=== PATIENT | male | born 1970 | race Caucasian/White ===

== ENCOUNTER 2021-03-07 21:18 | Emergency (ER) | payer OTHER, SELFPAY ==
[2021-03-07 21:35] VITALS: BP 149/106; PULSE 110; RESP 20; O2SAT 100
[2021-03-07 22:38] LABS: Basophils Percent Auto 0.4 % (0.2-1.2); Eosinophils Absolute Auto 0.1 K/mm3 (0-0.3); Eosinophils Percent Auto 0.7 % (0-4.4); Hemoglobin 16.3 g/dL (14.0-18.0); Immature Granulocyte Absolute 0.02 K/mm3 (0.00-0.031); Immature Granulocyte Percent A 0.2 % (0-0.5); Lymphocytes Absolute Auto 0.83 K/mm3 (0.9-3.2); Lymphocytes Percent Auto 9.8 % (18.3-44.2); Mean Corpuscular HGB Conc 34.7 g/dl (32-36); Mean Corpuscular Hemoglobin 31.7 pg (26-34); Mean Corpuscular Volume 91.4 fl (80-100); Mean Platelet Volume 9.8 fl (7.4-10.4); Monocytes Absolute Auto 0.7 K/mm3 (0.1-0.6); Monocytes Percent Auto 8.3 % (2.6-8.5); Neutrophils Absolute Auto 6.8 K/mm3 (1.3-6.7); Neutrophils Percent Auto 80.6 % (45.5-73.1); Platelet Count Result 292 k/mm3 (150-375); Red Blood Count 5.14 M/mm3 (4.6-6.20); Red Cell Distribution Width 12.5 % (11.5-14.5); White Blood Count 8.5 K/mm3 (4.5-10.0)
[2021-03-07 22:49] LABS: Alanine Aminotransferase 55 U/L (4-50); Albumin Level 4.8 g/dL (3.5-5.1); Alkaline Phosphatase 55 U/L (38-126); Anion Gap 9 mmol/L (8-16); Aspartate Amino Transferase 33 U/L (17-59); Bilirubin,Total 0.5 mg/dL (0.2-1.3); Blood Urea Nitrogen 15 mg/dL (9-20); Calcium 9.8 mg/dL (8.4-10.2); Carbon Dioxide 26 mmol/L (22-30); Chloride 101 mmol/L (98-107); Estimated CRCL calculation 65 ml/min; Estimated Glomerular Filt Rate 58; Glucose 139 mg/dL (65-110); Lipase 51 U/L (23-300); Potassium 4.3 mmol/L (3.4-5.0); Sodium 136 mmol/L (137-145)
--- NOTE | 2021-03-07 23:02 | ED.ABDPAIN ---
HPI - Abdominal Pain General Chief Complaint: Abdominal Pain Stated Complaint: Abdominal pain Time Seen by Provider: 03/07/21 23:01 Source: patient Mode of arrival: ambulatory Limitations: no limitations History of Present Illness HPI narrative: The patient is a 50 yo male with a history of BPH presenting for evaluation of dysuria, difficulty with urination. Patient was seen by PCP yesterday, and was started on oral Ciprofloxacin. Patient with continued painful urination, hesitancy this evening thus prompting his visit tonight. Patient denies fever or chills. No back pain. Patient denies testicular pain. Patient with history of this in the past. States that he has a history of BPH and urinary retention. He is compliant with his finasteride and Flomax. In the past patient did have to pass a voiding trial after Mcdaniel catheter was placed in the ER for similar presentation. Related Data Home Medications Medication Instructions Recorded Confirmed finasteride 5 mg tablet 5 mg PO tablet 03/07/21 03/07/21 tamsulosin 0.4 mg capsule ea PO 03/07/21 03/07/21 Allergies Allergy/AdvReac Type Severity Reaction Status Date / Time No Known Allergies Allergy Verified 03/07/21 15:44 Review of Systems Review of Systems: CONSTITUTIONAL: Denies fever, chills, or sweats. EYES: Denies visual changes, redness, or discharge. ENT: Denies rhinorrhea, congestion, sore throat, or otalgia. CARDIOVASCULAR: Denies chest pain, palpitations, or edema. RESPIRATORY: Denies cough or dyspnea. GASTROINTESTINAL: Reports distension, no significant pain GENITOURINARY: Reports dysuria, hematuria SKIN: Denies rash or itching. MUSCULOSKELETAL: Denies back pain NEUROLOGIC: Denies headache [facility] Social History Social History Smoking status: Current every day smoker (chew tobacco.) Tobacco type: smokeless tobacco Smokeless tobacco user: chewing tobacco Exam Narrative: GENERAL: Awake, alert, conversant HEAD: Normocephalic, atraumatic. EYES: PERRLA and EOMI. ENT: Nares clear, no rhinorrhea or epistaxis. Mucous membranes moist. NECK: Supple. CHEST: No respiratory distress, breathing even and non labored HEART: Regular rate, sinus rhythm ABDOMEN:Mild distension, no guarding, non rigid, no rebound EXTREMITIES: Normal range of motion. No edema. SKIN: Warm, dry, no rash. NEURO:No focal deficits. Alert and oriented x3 Course Vital Signs Vital signs: Vital Signs Pulse Rate 110 H 03/07/21 21:35 Respiratory Rate 20 03/07/21 21:35 Blood Pressure 149/106 H 03/07/21 21:35 Pulse Oximetry 100 03/07/21 21:35 Pulse Rate 78 03/07/21 23:52 Respiratory Rate 14 03/07/21 23:52 Blood Pressure 148/87 H 03/07/21 23:52 Pulse Oximetry 98 03/07/21 23:52 MDM - Abdominal Pain MDM Narrative Medical decision making narrative: Patient presenting for evaluation of urinary retention, dysuria. At the time of assessment, ABCs are intact and vital signs are stable. He is mildly hypertensive. Patient does have some slight suprapubic abdominal distention without significant tenderness on exam. No flank tenderness bilaterally. Differential includes prostatitis versus urinary tract infection versus urinary retention. Laboratory results are reassuring. No leukocytosis. No electrolyte abnormality or acute kidney injury. No urinary tract infection. A bladder scan was performed, there was over 600 mL of urine that came out with Mcdaniel catheter. We will keep Mcdaniel in overnight due to degree of urinary retention. Patient was advised to continue on his medications that are prescribed by his urologist. No signs of severe sepsis or septic shock. No evidence of urinary tract infection but patient can continue on the ciprofloxacin. He was discharged home to follow-up with his urologist. Differential Diagnosis Differential diagnosis: Likely abdominal pain, constipation, pancreatitis, small bowel obst
[2021-03-07 23:52] VITALS: BP 148/87; PULSE 78; RESP 14; O2SAT 98
[2021-03-08 00:09] LABS: Add Urine Microscopic? NO; Appearance Urine Clear (Clear); Bilirubin Urine Negative (Negative); Blood Urine Negative (Negative); Color Urine Yellow (Yellow); Glucose Urine UA Negative (Negative); Ketones Urine Negative (Negative); Leukocyte Esterase Ur Negative LEU/UL (Negative); Nitrate Urine Negative (Negative); Protein Urine Negative (Negative); Specific Grav Ur 1.015 (1.001-1.035); Urobilinogen Urine Negative mg/dL (<2.0)
[2021-03-08 00:36] VITALS: BP 144/89; PULSE 70; RESP 15; O2SAT 100
[2021-03-08 01:00] VITALS: BP 153/86; PULSE 65; RESP 18; O2SAT 95
== END 2021-03-08 01:02 | disposition home or self-care (01) ==
PROVIDERS: Family Medicine; Emergency Provider Emergency Medicine; PCP Family Medicine
DX: N40.1 Benign prostatic hyperplasia with lower urinary tract symptoms (principal); R33.8 Other retention of urine; F17.220 Nicotine dependence, chewing tobacco, uncomplicated
CPT/HCPCS: 36415; 51701; 80053; 81003; 83605; 83690; 85025; 87040; 99283

== ENCOUNTER 2021-03-19 01:11 | Emergency (ER) | payer OTHER, SELFPAY ==
[2021-03-19 01:17] VITALS: BP 161/99; PULSE 85; RESP 14; TEMP 36.7; O2SAT 98
--- NOTE | 2021-03-19 02:21 | PC.NURSE ---
pt. up to desk asking for help. pt. states put me in a room. RN informed pt. there are no rooms available. pt. states Set me out in the damn [facility], they have done it before. RN states that is against policy. Pt. states How much longer is it going to be, you don't know? You don't know shit. Pt. returned to chair and is resting.
--- NOTE | 2021-03-19 02:29 | PC.NURSE ---
donellbo to place still cath per erp dr menon
[2021-03-19 03:43] VITALS: PULSE 83; RESP 18; O2SAT 100
--- NOTE | 2021-03-19 04:10 | ED.GENADULT ---
HPI - General Adult General Chief complaint: Urogenital-Male Stated complaint: decreased urinary output Time Seen by Provider: 03/19/21 03:48 History of Present Illness HPI narrative: Patient 50-year-old gentleman who presents the emergency department with chief complaint of urinary retention. Patient reports he recently had catheter removed and has been doing okay for the last several days patient was treated with oral Cipro by his primary care physician for possible prostatitis. The patient is also on Flomax. The patient is followed by urology about the advanced practice provider and also the attending. The patient states that this evening he was unable to void and was having severe discomfort. Related Data Home Medications Medication Instructions Recorded Confirmed finasteride 5 mg tablet 5 mg PO tablet 03/07/21 03/07/21 tamsulosin 0.4 mg capsule ea PO 03/07/21 03/07/21 Allergies Allergy/AdvReac Type Severity Reaction Status Date / Time No Known Allergies Allergy Verified 03/19/21 01:21 Review of Systems Review of Systems: A 10 system review of systems was completed on the patient and is negative except for what is stated in the HPI. Nursing and ancillary documentation was reviewed. [facility] Social History Social History Smoking status: Current every day smoker (chew tobacco.) Tobacco type: smokeless tobacco Smokeless tobacco user: chewing tobacco Exam Narrative: GENERAL: Well-appearing, well-nourished, and in no acute distress. HEAD: Normocephalic, atraumatic. EYES: PERRLA and EOMI. ENT: Nares clear, no rhinorrhea or epistaxis. Mucous membranes moist. NECK: Supple. CHEST: Clear to auscultation. No respiratory distress. HEART: Regular rate and rhythm. No murmur heard. Normal peripheral pulses. ABDOMEN: Soft, nontender, nondistended, normal active bowel sounds. EXTREMITIES: Normal range of motion. No edema. SKIN: Warm, dry, no rash. NEURO: No focal deficits. Alert and oriented x3. PSYCH: Normal mood and affect. Course Course Emergency Course: Mcdaniel catheter was immediately placed upon arrival to the room. The patient symptoms are resolved afterwards. Vital Signs Vital signs: Vital Signs Temperature 36.7 C 03/19/21 01:17 Pulse Rate 85 03/19/21 01:17 Respiratory Rate 14 03/19/21 01:17 Blood Pressure 161/99 H 03/19/21 01:17 Pulse Oximetry 98 03/19/21 01:17 Temperature 36.7 C 03/19/21 01:17 Pulse Rate 83 03/19/21 03:43 Respiratory Rate 18 03/19/21 03:43 Blood Pressure 161/99 H 03/19/21 01:17 Pulse Oximetry 100 03/19/21 03:43 Medical Decision Making Vital Signs Vital Signs: Vital Signs Temperature 36.7 C 03/19/21 01:17 Pulse Rate 85 03/19/21 01:17 Respiratory Rate 14 03/19/21 01:17 Blood Pressure 161/99 H 03/19/21 01:17 Pulse Oximetry 98 03/19/21 01:17 Temperature 36.7 C 03/19/21 01:17 Pulse Rate 83 03/19/21 03:43 Respiratory Rate 18 03/19/21 03:43 Blood Pressure 161/99 H 03/19/21 01:17 Pulse Oximetry 100 03/19/21 03:43 Discharge Plan Discharge Clinical Impression: Acute urinary retention Patient Disposition: Home, Self-Care Condition: Stable Instructions: Antibiotic Form, Mcdaniel Catheter Placement and Care (ED), Urinary Retention in Men (ED) Prescriptions: No Action ciprofloxacin HCl [Cipro] 250 mg tablet 250 mg PO Q12H 30 Days Qty: 60 RF: 0 tamsulosin 0.4 mg capsule PO RF: 0 finasteride 5 mg tablet 5 mg PO RF: 0 Follow-up/Referrals: Jesús Patel MD [Primary Care Provider] - Richard Hall MD [Physician] -
[2021-03-19 04:22] LABS: Add Urine Microscopic? NO; Appearance Urine Clear (Clear); Bilirubin Urine Negative (Negative); Blood Urine Negative (Negative); Color Urine Straw (Yellow); Glucose Urine UA Negative (Negative); Ketones Urine Negative (Negative); Leukocyte Esterase Ur Negative LEU/UL (Negative); Nitrate Urine Negative (Negative); Protein Urine Negative (Negative); Specific Grav Ur 1.009 (1.001-1.035); Urobilinogen Urine Negative mg/dL (<2.0)
== END 2021-03-19 04:36 | disposition home or self-care (01) ==
PROVIDERS: Emergency Provider Emergency Medicine; PCP Family Medicine
DX: R33.9 Retention of urine, unspecified (principal); F17.220 Nicotine dependence, chewing tobacco, uncomplicated
CPT/HCPCS: 51702; 81003; 99283

== ENCOUNTER 2021-05-19 01:14 | Day surgery (SDC) | payer OTHER, SELFPAY ==
[2021-05-11 09:24] VITALS: BMI 27.8
--- NOTE | 2021-05-11 09:34 | PC.NURSE ---
Report to the Outpatient Waiting Room, entrance under the green pavilion located off [facility], at time 0600 on date 05/19/21. OR Time: 0730. - You will be asked a series of questions to screen for COVID 19 for your protection. - A mask is required within the hospital. - No visitors are allowed at this time. Preoperative COVID Testing Requirements: No COVID Test needed if: (proof is required; if not received patient will have Rapid Test prior to entry) - Patient has received COVID Vaccine at least 14 days prior to procedure date or - Patient has positive COVID test result within last 90 days of surgery date. COVID Test needed if above criteria is not met Patients may have clear liquids (water, carbonated beverages, clear teas, apple juice) until 3 hours prior to surgery with a maximum of 20 ounces. - No food from midnight until time of surgery Take the following medications with a SIP of water the morning of surgery: NONE Medications to discontinue per physician: N/A Date to take last dose: N/A Please no make-up, nail romansh, hairspray, perfume, deodorant, or body powder the day of surgery. No jewelry (including any body piercings) or valuables the day of surgery, leave them at home. Please take a shower or bath the night before, or the morning of, surgery with an antibacterial soap. Wear comfortable, loose fitting clothing. - Jewelry must be removed prior to entering the operating room. Rings and piercings that are not removed may be cut off. - The hospital will not accept responsibility for valuables. - Please leave all valuables, including medications, at home the day of surgery. If you are going home after surgery, a licensed coach tour driver must drive you home. - NO public transportation without another adult. - We recommend that an adult stay with you for 24 hours following discharge. - We also recommend that you do not drive, make important decision, drink alcoholic beverages, or take any drugs that were not prescribed by your health care provider for at least 24 hours after your discharge time. Follow any additional instructions given to you from your surgeon. Telephone instructions given to EVER ERIC and asked if any additional questions and then verbalized understanding. Patient advised to call surgeon office or pre surgery nurse liaison [phone] if any additional questions.
[2021-05-19] VITALS (8 sets, daily range): BP systolic 128–188; BP diastolic 89–99; PULSE 68–86; RESP 16–20; TEMP 36.6–37; O2SAT 94–95
[2021-05-19] MEDS: LACTATED RINGERS 1,000 ML 30 ML IV CONT (06:25)
--- NOTE | 2021-05-19 06:35 | WPDHPUPDATE1 ---
History and Physical Update Update Date/Time: 05/19/21 06:35 History and Physical has been reviewed, including an updated exam of the patient. There are NO changes in the patient's condition. Risks, benefits, and alternatives have been discussed and questions answered. Patient agrees to proceed with procedure.
--- NOTE | 2021-05-19 06:54 | P.PNAN_ITS ---
Anes - Initial Pre Proc Eval Procedure: Operation Date: 05/19/21 07:30 Proposed Procedures p Urolift - Richard Hall MD Date/Time: 05/19/21 06:54 Surgeon: Richard Hall MD Pre Op Diagnosis: BPH Patient Data Age: 51 Gender: M Height: 1.83 m Weight: 103 kg Last Vital Signs Temp 37.0 C 05/19/21 06:10 Pulse 86 05/19/21 06:10 Resp 18 05/19/21 06:10 BP 153/96 H 05/19/21 06:43 Pulse Ox 95 05/19/21 06:10 Allergies Allergy/AdvReac Type Severity Reaction Status Date / Time No Known Allergies Allergy Verified 05/19/21 06:28 Home Medications Medication Instructions Recorded Confirmed Type finasteride 5 mg tablet 5 mg PO DAILY tablet 03/07/21 05/19/21 History tamsulosin 0.4 mg capsule 0.4 mg PO DAILY 03/07/21 05/19/21 History Patient hx anesthesia problems: none Family hx anesthesia problems: none Results Review: All pre-operative results and documents have been reviewed as part of the pre-operative evaluation. [facility] Social History Social History Smoking status: Never smoker Tobacco type: smokeless tobacco Smokeless tobacco user: chewing tobacco Alcohol intake: current Drinks per week: 5 Substance use: never Substance use type: does not use Living arrangements: with family Spiritual care concerns: No Anes - Eval Final PreProcedure Day of Procedure 05/19/21 06:54 Patient weight: overweight Heart: regular rate and rhythm Lungs: clear to auscultation Airway: Mallampati scale class II Neurological: alert and oriented Last oral intake: >/= 8 hours ASA classification: II Emergent: no Anesthetic plan: proceed Anesthesia type and monitoring: general GIVS and standard monitoring Results Review: All pre-operative results and documents have been reviewed as part of the pre-operative evaluation. Informed Consent: The patient's anesthetic plan and its attendant risks and benefits were discussed with the patient/family/POA. Questions were solicited and answers provided to the satisfaction of the patient/family/POA.
[2021-05-19] MEDS: ceFAZolin 2 GM/D5W 50 ML 2 GM/50 ML BAG IVPB (07:21)
[2021-05-19] MEDS: LIDOCAINE HCL 2% GEL UROJET 10 ML PKG MUCOUS MEM (07:21)
--- NOTE | 2021-05-19 07:44 | P.OP_ITS ---
Procedure Note - Detailed Date of Procedure 05/19/21 Pre-op Diagnosis BPH Post-op Diagnosis same Procedure Performed UroLift Surgeon Richard Hall MD Anesthesia general Description of Procedure The patient was prepped and draped in a routine fashion after the uneventful induction of a general LMA anesthetic. A 20F cystoscope was inserted into the bladder. The cystoscopy bridge was replaced with a UroLift delivery device. The first treatment site was the patient's right side approximately 1.5cm distal to the bladder neck. The distal tip of the delivery device was then angled laterally approximately 20 degrees at this position to compress the lateral lobe. The trigger was pulled, thereby deploying a needle containing the implant through the prostate. The needle was then retracted, allowing one end of the implant to be delivered to the capsular surface of the prostate. The implant was then tensioned to assure capsular seating and removal of slack monofilament. The device was then angled back toward midline and slowly advanced proximally (typically 3 to 4 mm) until cystoscopic verification of the monofilament being centered in the delivery bay. The urethral end piece was then affixed to the monofilament thereby tailoring the size of the implant. Excess filament was then severed. The delivery device was then re-advanced into the bladder. The delivery device was then replaced with cystoscope and bridge and the implant location and opening effect was confirmed cystoscopically. The same procedure was then repeated on the left side, and two additional implants were delivered just proximal to the verumontanum, again one on right and one on left side of the prostate, following the same technique. [Cystoscopy then revealed a persistent area of obstruction, and two more implants were delivered in the mid- prostate.] Therefore, a total of 4 implants were delivered. A final cystoscopy was conducted first to inspect the location and state of each implant and second, to confirm the presence of a continuous anterior channel was present through the prostatic urethra with irrigation flow turned off. The bladder was then filled with 150 cc irrigation fluid to assist the patient in void trial after the procedure, and all instruments were removed. At this point the cystoscope was removed and the patient was taken to the PACU in good condition. Estimated Blood Loss 0 Drains No Packing No Pathology none sent Complications No immediate complications Condition stable Disposition PACU
== END 2021-05-19 09:18 | disposition home or self-care (01) ==
PROVIDERS: PCP Family Medicine; Visit Provider Urology
PROC: 0T7D8DZ Dilation of Urethra with Intraluminal Device, Via Natural or Artificial Opening Endoscopic (ICD-10-PCS; CPT 52441; principal; 2021-05-19 07:30)
DX: N40.1 Benign prostatic hyperplasia with lower urinary tract symptoms (principal); R35.0 Frequency of micturition; R39.15 Urgency of urination; R35.1 Nocturia; F17.220 Nicotine dependence, chewing tobacco, uncomplicated
CPT/HCPCS: 52441; 52442 ×3; A9270; J0690; J1100; J2250; J2405; J2704; J3010; J7120; L8699

== ENCOUNTER 2022-10-05 08:23 | Emergency (ER) | payer BC, SELFPAY ==
[2022-10-05 08:28] VITALS: BP 123/77; PULSE 74; RESP 16; TEMP 36.7; O2SAT 97
[2022-10-05 08:29] VITALS: BP 126/78
[2022-10-05 08:31] VITALS: BP 123/77; PULSE 68; RESP 16; O2SAT 99
--- NOTE | 2022-10-05 08:35 | PC.NURSE ---
Dr. Spaulding at bedside to assess pt.
--- NOTE | 2022-10-05 08:43 | ED.GENADULT ---
HPI - General Adult General Chief complaint: Urogenital-Male Stated complaint: inability to urinate Time Seen by Provider: 10/05/22 08:26 History of Present Illness HPI narrative: 52-year-old male presenting to the emergency department for evaluation of suprapubic abdominal pain and decreased urination. Patient does have a prior history of BPH and has had follow-up with Dr. Hall. Patient states this morning he was having some sharp suprapubic abdominal pain and was only able to urinate a small amount. Patient denies any specific pain with urination. Related Data Allergies Allergy/AdvReac Type Severity Reaction Status Date / Time No Known Allergies Allergy Verified 10/05/22 08:33 Review of Systems Review of Systems: All systems reviewed & are unremarkable except as noted in HPI and below PMFSH Past Medical History Medical History BPH (benign prostatic hyperplasia) Essential (primary) hypertension Surgical History Surgical History History of cystoscopy (~05/2021) s/p Urolift surgery History of right shoulder replacement (~02/27/22) Social History Social History Smoking status: Never smoker Tobacco type: smokeless tobacco Smokeless tobacco user: chewing tobacco Alcohol intake: current Drinks per week: 5 Substance use: never Substance use type: does not use Lack of Transportation: No Lack of Food: Never True Current Housing: I Have Housing Concerned About Future Housing: No Difficulty Paying Gas/Electric Bills: No Difficulty Paying for Meds: No Currently Unemployed: No Education: High School Diploma/GED Difficulty w/ Childcare or Family Care: No Living arrangements: with family Spiritual care concerns: No Exam Narrative: APPEARANCE: Well appearing, no pain, no distress, well-nourished. HEAD: normocephalic, atraumatic. EYES: PERRLA/EOMI, conjunctivae clear. NECK: Supple. No adenopathy, no masses. RESPIRATORY: Airway patent, respirations nonlabored. Clear to auscultation bilaterally, no rales, rhonchi, wheezing. CARDIOVASCULAR: Regular rate and rhythm without murmurs rubs or gallops. ABDOMINAL: Soft nondistended, suprapubic tenderness to palpation MUSCULOSKELETAL: Moves all extremities. Strength/ROM intact, No edema, No calf tenderness. NEURO: Alert. Cranial nerves II through XII intact. Grossly intact SKIN: Warm, dry. Normal Color Course Course Emergency Course: 52-year-old male presented to ED for evaluation of suprapubic abdominal pain. Patient was updated on the plan for work-up. All questions and concerns were addressed Patient did have approximately 70 mL of retained urine. UA had no evidence of infection. Patient was afebrile with no leukocytosis. Patient did have some mild PARI but his baseline creatinine appears to be about 1.3. Patient was treated with 1 L of normal saline. Patient was agreeable to keeping the Mcdaniel catheter in place and patient was restarted on Flomax. Patient was encouraged of close follow-up with urology. All questions concerns were addressed and patient and family were comfortable with the plan for discharge and close follow-up. Vital Signs Vital signs: Vital Signs Temperature 98.1 F 10/05/22 08:28 Pulse Rate 74 10/05/22 08:28 Respiratory Rate 16 10/05/22 08:28 Blood Pressure 123/77 10/05/22 08:28 Pulse Oximetry 97 10/05/22 08:28 Oxygen Delivery Room Air 10/05/22 08:28 Temperature 98.1 F 10/05/22 08:28 Pulse Rate 65 10/05/22 11:08 Respiratory Rate 17 10/05/22 11:08 Blood Pressure 125/68 10/05/22 11:08 Pulse Oximetry 94 10/05/22 11:08 Oxygen Delivery Room Air 10/05/22 08:28 Medical Decision Making Differential Diagnosis Differential Diagnosis: UTI, urinary retention Vital Signs Vital Signs: Vital Signs Temperatu
[2022-10-05 08:56] LABS: Appearance Urine Clear (Clear); Bilirubin Urine Negative (Negative); Blood Urine Negative (Negative); Color Urine Yellow (Yellow); Glucose Urine UA Negative (Negative); Ketones Urine 1+ mg/dL (Negative); Leukocyte Esterase Ur Negative LEU/UL (Negative); Nitrate Urine Negative (Negative); Protein Urine Negative (Negative); Specific Grav Ur 1.018 (1.001-1.035); pH Urine 5.5 (5.0-9.0)
[2022-10-05 08:59] LABS: Add Urine Microscopic? NO
[2022-10-05] MEDS: SODIUM CHLORIDE 0.9% IV 1,000 ML 999 ML IV CONT (09:07)
[2022-10-05 09:19] LABS: Basophils Percent Auto 0.3 % (0.2-1.2); Eosinophils Percent Auto 0.6 % (0-4.4); Hematocrit 42.6 % (42.0-52.0); Hemoglobin 14.7 g/dL (14.0-18.0); Immature Granulocyte Absolute 0.03 K/mm3 (0.00-0.031); Immature Granulocyte Percent A 0.4 % (0-0.5); Lymphocytes Absolute Auto 0.73 K/mm3 (0.9-3.2); Lymphocytes Percent Auto 10.6 % (18.3-44.2); Mean Corpuscular HGB Conc 34.5 g/dl (32-36); Mean Corpuscular Hemoglobin 30.8 pg (26-34); Mean Corpuscular Volume 89.3 fl (80-100); Mean Platelet Volume 8.8 fl (7.4-10.4); Monocytes Absolute Auto 0.7 K/mm3 (0.1-0.6); Monocytes Percent Auto 10.8 % (2.6-8.5); Neutrophils Absolute Auto 5.3 K/mm3 (1.3-6.7); Neutrophils Percent Auto 77.3 % (45.5-73.1); Platelet Count Result 357 k/mm3 (150-375); Red Blood Count 4.77 M/mm3 (4.6-6.20); Red Cell Distribution Width 12.6 % (11.5-14.5); White Blood Count 6.9 K/mm3 (4.5-10.0)
[2022-10-05 09:20] LABS: Alanine Aminotransferase 38 U/L (6-50); Albumin Level 4.4 g/dL (3.5-5.1); Alkaline Phosphatase 63 U/L (38-126); Anion Gap 8 mmol/L (8-16); Aspartate Amino Transferase 31 U/L (17-59); Bilirubin,Total 0.4 mg/dL (0.2-1.3); Blood Urea Nitrogen 23 mg/dL (9-20); Calcium 8.9 mg/dL (8.4-10.2); Carbon Dioxide 29 mmol/L (22-30); Chloride 90 mmol/L (98-107); Estimated CRCL calculation 49 ml/min; Estimated Glomerular Filt Rate 42; Glucose 143 mg/dL (65-110); Potassium 4.1 mmol/L (3.4-5.0); Sodium 127 mmol/L (137-145)
[2022-10-05] MEDS: TAMSULOSIN HCL 0.4 MG CAPSULE PO (11:05)
[2022-10-05 11:08] VITALS: BP 125/68; PULSE 65; RESP 17; O2SAT 94
== END 2022-10-05 11:16 | disposition home or self-care (01) ==
PROVIDERS: Emergency Provider Emergency Medicine; PCP Family Medicine
DX: N40.1 Benign prostatic hyperplasia with lower urinary tract symptoms (principal); R33.8 Other retention of urine; I10 Essential (primary) hypertension; F17.290 Nicotine dependence, other tobacco product, uncomplicated
CPT/HCPCS: 36415; 51702; 80053; 81003; 85025; 96360; 99283; A9270; J7030

== ENCOUNTER 2023-07-27 05:42 | Emergency (ER) | payer BC, SELFPAY ==
[2023-07-27 05:51] VITALS: BP 135/93; PULSE 68; RESP 18; TEMP 37; O2SAT 92
[2023-07-27 05:55] VITALS: BP 135/93; PULSE 68; RESP 17; TEMP 37; O2SAT 93
--- NOTE | 2023-07-27 06:36 | ED.GENADULT ---
HPI - General Adult General Chief complaint: Urogenital-Male Stated complaint: anuria Time Seen by Provider: 07/27/23 06:13 History of Present Illness HPI narrative: Patient is a 53-year-old male who presents to the emergency department this morning complaining of urinary retention. Patient states that he has a history of an enlarged prostate on approximately once a year he does need to come in and have a Mcdaniel placed due to urinary retention. Patient was recently in [place] for a vacation and had some urinary retention and had a Mcdaniel catheter placed on Sunday. Patient had the Mcdaniel catheter removed yesterday. He sees Dr. Hall as his urologist. Patient states that after the Mcdaniel catheter was removed yesterday he had no issues urinating and woke up this morning around 1:00 a.m. and had normal voiding. Patient states that shortly prior to arriving to the emergency department he had some abdominal pressure similar to the pain that caused him to go to the emergency in [place]. Patient states that on his way here he passed some gas and felt much better. Patient has been struggling with constipation and gas and recently started taking MiraLax and Gas-X for relief. Patient had a CT abdomen pelvis with IV contrast 6 days ago in [place] which revealed some hepatic steatosis and mild a site 80s, otherwise unremarkable. Patient admits that he is a drinker and drinks every day. Never been diagnosed with cirrhosis. Patient denies any additional symptoms or concerns at this time. Related Data Home Medications Medication Instructions Recorded Confirmed finasteride 5 mg tablet 5 mg PO DAILY 04/30/23 Allergies Allergy/AdvReac Type Severity Reaction Status Date / Time No Known Allergies Allergy Verified 07/27/23 05:56 Review of Systems Review of Systems: All systems are reviewed and are negative unless stated otherwise in the HPI. [facility] Past Medical History Medical History BPH (benign prostatic hyperplasia) Essential (primary) hypertension Surgical History Surgical History History of cystoscopy (~05/2021) s/p Urolift surgery History of right shoulder replacement (~02/27/22) Social History Social History Smoking status: Never smoker Tobacco type: smokeless tobacco Smokeless tobacco user: chewing tobacco Alcohol intake: current Drinks per week: 5 Substance use: never Substance use type: does not use Lack of Transportation: No Lack of Food: Never True Current Housing: I Have Housing Concerned About Future Housing: No Difficulty Paying Gas/Electric Bills: No Difficulty Paying for Meds: No Currently Unemployed: No Education: High School Diploma/GED Difficulty w/ Childcare or Family Care: No Living arrangements: with family Spiritual care concerns: No Exam Narrative: General: Alert, awake, afebrile, in no acute distress. Cardiovascular: Regular rate and rhythm, no murmurs, rubs or gallops, no peripheral edema. Respiratory: Clear to auscultation bilaterally, no tachypnea, no wheezing, no rhonchi, no rubs, no respiratory distress. Abdomen: Soft, nontender, nondistended, no rebound, no guarding, no peritoneal signs. Musculoskeletal: No joint swelling or deformity, normal muscle tone. Skin: No rashes or petechia, no signs of infection. Psychiatric: Alert and oriented, normal behavior and judgment for situation. Neurological: Alert and oriented to person, place, and time. Follows all commands. No focal deficits, speech is clear and fluent. Course Vital Signs Vital signs: Vital Signs Temperature 98.6 F 07/27/23 05:51 Pulse Rate 68 07/27/23 05:51 Respiratory Rate 18 07/27/23 05:51 Blood Pressure 135/93 H 07/27/23 05:51 Pulse Oximetry 92 07/27/23 05:51 Oxygen Delivery Room Air 07/27/23 0
== END 2023-07-27 06:40 | disposition home or self-care (01) ==
PROVIDERS: Emergency Provider Emergency Medicine; PCP Family Medicine
DX: R33.8 Other retention of urine (principal); N40.1 Benign prostatic hyperplasia with lower urinary tract symptoms; I10 Essential (primary) hypertension; F17.220 Nicotine dependence, chewing tobacco, uncomplicated
CPT/HCPCS: 99281

== ENCOUNTER 2023-08-07 10:05 | Outpatient (CLI) | payer BC, SELFPAY ==
--- NOTE | ~2023-08-07 | CT_ITS ---
Non-contrast CT scan of the Abdomen and Pelvis Clinical indication: Acute urinary retention Technique: 2.5 mm axial scans were obtained through the abdomen and pelvis without intravenous or or al contrast. Dose reduction technique was used on this scan by utilizing automated exposure control a nd iterative reconstruction technique. The dose-length product (DLP) was 947.14 mGy-cm. Findings: Images through the lung bases reveal no abnormalities. There is no evidence of renal or ureteral calculi. The kidneys and the ureters are nondilated. The liver, spleen, gallbladder, and adrenals appear normal. There is a 13 mm hypodense, possibly cyst ic lesion at the pancreatic neck (axial image 69). There is no aortic aneurysm. There is no evidence of bowel obstruction. There is a 3.9 x 2.9 cm irregular fluid collection adjacen t to the distal sigmoid colon, most compatible with abscess related to diverticulitis (axial image 14 9). No free air evident. Images through the pelvis were performed. There is no evidence of ascites or lymphadenopathy. Urinary bladder unremarkable. Small fat-containing right inguinal hernia noted. Impression: Findings consistent with 3.9 x 2.8 cm pelvic abscess, most likely related to distal sigmoid diverticu litis. No distinct abnormality of the system evident. 13 mm hypodense, possibly cystic lesion at the pancreatic neck. Follow-up MR evaluation recommended. Reviewed, dictated and finalized at [facility]. Impression: Findings consistent with 3.9 x 2.8 cm pelvic abscess, most likely related to di stal sigmoid diverticulitis. No distinct abnormality of the system evident. 13 mm hypodense, possibly cystic lesion at the pancreatic neck. Follow-up MR ev aluation recommended.
== END 2023-08-07 10:06 ==
PROVIDERS: PCP Family Medicine; Visit Provider Urology
DX: R33.8 Other retention of urine (principal)
CPT/HCPCS: 74176

== ENCOUNTER 2023-08-07 10:28 | Outpatient (CLI) | payer BC, SELFPAY ==
[2023-08-07 14:00] LABS: Basophils Percent Auto 0.9 % (0.2-1.2); Eosinophils Absolute Auto 0.1 K/mm3 (0-0.3); Eosinophils Percent Auto 3.2 % (0-4.4); Hemoglobin 14.7 g/dL (14.0-18.0); Immature Granulocyte Absolute 0.02 K/mm3 (0.00-0.031); Immature Granulocyte Percent A 0.5 % (0-0.5); Lymphocytes Absolute Auto 0.82 K/mm3 (0.9-3.2); Lymphocytes Percent Auto 18.9 % (18.3-44.2); Mean Corpuscular HGB Conc 33.4 g/dl (32-36); Mean Corpuscular Hemoglobin 30.5 pg (26-34); Mean Corpuscular Volume 91.3 fl (80-100); Mean Platelet Volume 9.8 fl (7.4-10.4); Monocytes Absolute Auto 0.5 K/mm3 (0.1-0.6); Monocytes Percent Auto 10.6 % (2.6-8.5); Neutrophils Absolute Auto 2.9 K/mm3 (1.3-6.7); Neutrophils Percent Auto 65.9 % (45.5-73.1); Platelet Count Result 484 k/mm3 (150-375); Red Blood Count 4.82 M/mm3 (4.6-6.20); Red Cell Distribution Width 12.3 % (11.5-14.5); White Blood Count 4.3 K/mm3 (4.5-10.0)
[2023-08-07 14:12] LABS: Alanine Aminotransferase 28 U/L (6-50); Albumin Level 4.7 g/dL (3.5-5.1); Alkaline Phosphatase 64 U/L (38-126); Anion Gap 8 mmol/L (4-12); Aspartate Amino Transferase 48 U/L (17-59); Bilirubin,Total 0.6 mg/dL (0.2-1.3); Blood Urea Nitrogen 14 mg/dL (9-20); Calcium 10.1 mg/dL (8.4-10.2); Carbon Dioxide 29 mmol/L (22-30); Chloride 100 mmol/L (98-107); Cholesterol 176 mg/dL (0-200); Estimated Glomerular Filt Rate > 60; Glucose 115 mg/dL (65-110); HDL Direct 35 mg/dL; Potassium 3.9 mmol/L (3.4-5.0); Sodium 137 mmol/L (137-145); Triglycerides 69 mg/dL (<150)
[2023-08-07 14:28] LABS: LDL Cholesterol Direct 116 mg/dL
[2023-08-07 14:38] LABS: Prostate Specific Antigen 4.7 ng/mL (< OR = 4.0)
[2023-08-07 15:29] LABS: Vitamin D 25 Hydroxy 41.3 ng/mL
[2023-08-07 16:12] LABS: Hemoglobin A1C 5.7 % (<5.7)
[2023-08-09 14:39] LABS: Ceruloplasmin 32 mg/dL (18-36)
[2023-08-10 11:33] LABS: Alpha Fetoprotein Tumor Marker 1.8 ng/mL (<6.1)
[2023-08-10 12:08] LABS: Actin Antibody (IgG) <20 U (<20)
[2023-08-17 16:33] LABS: ALT 19 U/L (9-46); Alpha-2-Macroglobulin 151 mg/dL (106-279); Apolipoprotein A1 115 mg/dL (94-176); Fibrosis Score 0.12; Fibrosis Stage F0; GGT 29 U/L (3-85); Haptoglobin 228 mg/dL (43-212); Necroinflammat Act Grade A0; Total Bilirubin 0.3 mg/dL (0.2-1.2)
[2023-08-23 00:44] LABS: Mitochondrial (M2) Ab (IgG) <20.0 U
== END 2023-08-07 10:29 | disposition home or self-care (01) ==
PROVIDERS: Nurse Practitioner Family; PCP Family Medicine; Visit Provider Nurse Practitioner Family
DX: K76.0 Fatty (change of) liver, not elsewhere classified (principal); R93.2 Abnormal findings on diagnostic imaging of liver and biliary tract; N50.89 Other specified disorders of the male genital organs; I10 Essential (primary) hypertension; E55.9 Vitamin D deficiency, unspecified; R73.9 Hyperglycemia, unspecified; Z12.5 Encounter for screening for malignant neoplasm of prostate
CPT/HCPCS: 36415; 80053; 80061; 81596; 82104; 82105; 82306; 82390; 82977; 83036; 83520; 84153; 85025; 86364; G0103

== ENCOUNTER 2023-08-07 16:48 | Emergency (ER) | payer BC, SELFPAY ==
[2023-08-07 16:51] VITALS: BP 125/76; PULSE 63; RESP 20; TEMP 36.4; O2SAT 98
[2023-08-07 18:28] VITALS: BP 136/83; PULSE 57; RESP 16; O2SAT 95
--- NOTE | 2023-08-07 18:52 | ED.RECABL ---
HPI - Recheck/Abnormal Lab/Rx General Chief Complaint: Recheck/Abnormal Lab/Rx Stated Complaint: abcess on colon found on CT Time Seen by Provider: 08/07/23 18:28 History of Present Illness HPI narrative: Patient is a 53 year old male here with abnormal outpatient CT. Patient notes that 2 weeks ago he was on a plane to [place] when he began having severe abdominal pain. On landing, he went to an ER in [place] where they put a catheter in for urinary retention and performed a CT which was inconclusive for many things. Since that time he has had intermittent abdominal pains and fullness and last week had a day worth of dysuria. He has seen both urology, Dr. Hall and GI. Dr. Hall ordered an outpatient CT scan which was performed today. The patient was called and told to come into the ER due to abscess for immediate drainage. He does note he [place] the horse [place] prior to coming into the ER and did have a beer about 1 hour ago. He notes pain is minimal at this time and he has been feeling fairly well throughout the last week. No fever. Related Data Home Medications Medication Instructions Recorded Confirmed finasteride 5 mg tablet 5 mg PO DAILY 04/30/23 Allergies Allergy/AdvReac Type Severity Reaction Status Date / Time No Known Allergies Allergy Verified 08/07/23 16:56 Review of Systems Review of Systems: All systems reviewed & are unremarkable except as noted in HPI and below PMFSH Past Medical History Medical History BPH (benign prostatic hyperplasia) Essential (primary) hypertension Surgical History Surgical History History of cystoscopy (~05/2021) s/p Urolift surgery History of right shoulder replacement (~02/27/22) Social History Social History Smoking status: Never smoker Tobacco type: smokeless tobacco Smokeless tobacco user: chewing tobacco Alcohol intake: current Drinks per week: 5 Substance use: never Substance use type: does not use Lack of Transportation: No Lack of Food: Never True Current Housing: I Have Housing Concerned About Future Housing: No Difficulty Paying Gas/Electric Bills: No Difficulty Paying for Meds: No Currently Unemployed: No Education: High School Diploma/GED Difficulty w/ Childcare or Family Care: No Living arrangements: with family Spiritual care concerns: No Exam Narrative: GENERAL: Well-appearing, well-nourished, and in no acute distress. HEAD: Normocephalic, atraumatic. EYES: PERRLA and EOMI. ENT: Nares clear. Mucous membranes moist. NECK: Supple. CHEST: Clear to auscultation. No respiratory distress. HEART: Regular rate and rhythm. Normal peripheral pulses. ABDOMEN: Soft, nontender, nondistended. No rebound or guarding. EXTREMITIES: Normal range of motion. No edema. SKIN: Warm, dry, no rash. NEURO: No focal deficits. Alert and oriented x3. PSYCH: Normal mood and affect. Course Course Emergency Course: Chart review performed, patient here with a abscess on colon from outpatient CT. Triage vitals normal. Out patient CT reviewed, she has a 3.9 x 2.8 cm pelvic abscess multiple likely related to sigmoid diverticulitis. Labs from today shows no leukocytosis, normal electrolytes, CRP negative. Spoke with Dr. Ashby, given patient is having minimal symptoms and that he would prefer to be discharged home, will do oral antibiotics, repeat CT in 1 week and follow with Dr. Ashby after repeat CT. He may still require drainage in the future. Awaiting urine for DC. Urine negative for UTI. Extensive discussion with patient regarding plan. Did discuss option for admission for IV antibiotics and surgical evaluation versus outpatient repeat CT, oral antibiotics, following up with Dr. Ashby in 1 weeks time. Advised that hospitalization would not necessarily r
[2023-08-07 18:57] LABS: Partial Thromboplastin Time 29.6 Seconds (22.3-36.8); Prothrombin Time 13.4 Seconds (11.1-14.7)
[2023-08-07 19:06] LABS: CRP < 0.5 mg/dL (<1.0)
[2023-08-07 19:26] LABS: Appearance Urine Clear (Clear); Bilirubin Urine Negative (Negative); Blood Urine Negative (Negative); Color Urine Yellow (Yellow); Glucose Urine UA Negative (Negative); Ketones Urine Negative (Negative); Leukocyte Esterase Ur Negative LEU/UL (Negative); Nitrate Urine Negative (Negative); Protein Urine Negative (Negative); Specific Grav Ur 1.007 (1.001-1.035); Urobilinogen Urine 0.2 mg/dL (<2.0)
[2023-08-07 19:32] LABS: Add Urine Microscopic? NO
[2023-08-07] MEDS: CIPROFLOXACIN 400 MG/D5W 200ML 200 ML 200 MG IVPB (19:52)
== END 2023-08-07 20:58 | disposition home or self-care (01) ==
PROVIDERS: Emergency Provider Student in an Organized Health Care Education/Training Program; PCP Family Medicine
DX: K57.20 Diverticulitis of large intestine with perforation and abscess without bleeding (principal); I10 Essential (primary) hypertension; N40.0 Benign prostatic hyperplasia without lower urinary tract symptoms; F17.220 Nicotine dependence, chewing tobacco, uncomplicated
CPT/HCPCS: 36415; 80053; 80061; 81003; 81596; 82104; 82105; 82306; 82390; 82977; 83036; 83520; 84153; 85025; 85610; 85730; 86140; 86364; 96365; 99284; G0103; J0744

== ENCOUNTER 2023-08-20 07:32 | Outpatient (CLI) | payer BC, SELFPAY ==
--- NOTE | ~2023-08-20 | US_ITS ---
Limited Abdominal Sonogram: Real-time sonographic imaging of the right upper quadrant was performed. Clinical History: Fatty liver Findings: The liver appears echogenic, with no evidence of mass lesion or bile duct dilatation. Main portal vein demonstrates normal direction of flow. The gallbladder is well distended, and dimensions probable tiny gallbladder wall polyp. The common bile duct measures 4 mm. The visualized aorta and IVC are unremarkable. Probable 1.8 cm hypoechoic mass at the pancreatic head region. Right kidney laron sures 11.8 cm in length, without hydronephrosis. Impression: Diffuse fatty infiltration of the liver. 1.8 cm hypoechoic mass at the pancreatic head. This could reflect cystic lesion versus hypoechoic bekah id lesion. Contrast enhanced CT or MR should be strongly considered to further evaluate. Probable tiny gallbladder wall polyp. Reviewed, dictated and finalized at [facility]. Impression: Diffuse fatty infiltration of the liver. 1.8 cm hypoechoic mass at the pancreatic head. This could reflect cystic lesion versus hypoechoic solid lesion. Contrast enhanced CT or MR should be strongly considered to further evaluate. Probable tiny gallbladder wall polyp.
== END 2023-08-20 07:33 ==
LOC: MICIMG 07:33
PROVIDERS: PCP Family Medicine; Visit Provider Nurse Practitioner Family
DX: R93.2 Abnormal findings on diagnostic imaging of liver and biliary tract (principal); K76.0 Fatty (change of) liver, not elsewhere classified; K86.89 Other specified diseases of pancreas
CPT/HCPCS: 76705

== ENCOUNTER 2023-08-22 13:52 | Outpatient (CLI) | payer BC, SELFPAY ==
--- NOTE | ~2023-08-22 | CT_ITS ---
EXAMINATION: CT abdomen pelvis w con DATE: 08/22/2023 15:10 INDICATION: Sigmoid diverticulitis with 3.9 x 2.8 cm pelvic abscess reported on 08/07/2023 CT abdomen p ra. Patient presented for acute retention of urine. TECHNIQUE: Computed tomography (CT) of the abdomen and pelvis was performed with 100 CC Omnipaque 350 intravenous contrast. Automated exposure control and iterative reconstruction technique were employe d. Exam dose: 817.89 mGy-cm total exam DLP. COMPARISON: 08/07/2023 CT abdomen pelvis FINDINGS: Minimal bilateral dependent lower lobe atelectasis. The lung bases are clear of infiltrate or consolidation. Normal heart size. No pericardial or pleural effusion. The liver, gallbladder, bile ducts, spleen, adrenal glands and kidneys are unremarkable. Approximately 1.2 x 1.5 cm hypoattenuating lesion with attenuation of approximately 11 [place] uni ts is noted at the pancreatic neck. MR imaging has been recommended for further evaluation (08/07/2023 CT abdomen pelvis report). Normal caliber of the abdominal aorta. No intraperitoneal or retroperitoneal or pelvic mass lesion or adenopathy or ascites is noted otherwise. Diverticulosis of the sigmoid and descending colon. There is interval virtually complete resolution o f the small pelvic abscess reported on 08/07/2023. Moderate prostatomegaly. Mild diffuse bladder wall thickening. Small bilateral fat-containing inguinal hernias. Small fat-containing umbilical hernia. Moderately severe degenerative disc disease at L5-S1. No suspicious osteolytic or osteoblastic lesion s are noted. IMPRESSION: Virtually complete resolution of small pelvic abscess since 08/07/2023 1.2 x 1.5 cm cystic lesion in the pancreatic neck simple MR imaging is recommended Reviewed, dictated and finalized at [facility]. Reviewed, dictated and finalized at [facility]. IMPRESSION: Virtually complete resolution of small pelvic abscess since 08/07/19 24 1.2 x 1.5 cm cystic lesion in the pancreatic neck simple MR imaging is recommen ded
== END 2023-08-22 13:53 | disposition home or self-care (01) ==
LOC: ANHIMG 13:56
PROVIDERS: PCP Family Medicine; Visit Provider Surgery
DX: K57.80 Diverticulitis of intestine, part unspecified, with perforation and abscess without bleeding (principal)
CPT/HCPCS: 74177; Q9967